=== PATIENT | male | born 1965 | race Caucasian/White ===

== ENCOUNTER → 2017-11-23 | Outpatient (CLI) | payer OTHER ==
[~2017-11-23] MED LIST: IOPAMIDOL 370 MG/ML 200 ML INFUS..BTL INJ ONE; SODIUM CHLORIDE 0.9% 250ML 250 ML ONE
[2017-11-23 16:04] LABS: BLOOD UREA NITROGEN 10 mg/dL (7-26); BUN/CREATININE RATIO 13 (6-25); CREATININE, SERUM 0.77 mg/dL (0.72-1.25); EST GLOMERULAR FILTRATION RATE > 60 ML/MIN (60-)
--- NOTE | 2017-11-23 18:48 | Diagnostic Imaging Report ---
PROCEDURE: CT ABDOMEN \T\ PELVIS W/WO CONTRAST TECHNIQUE: The abdomen and pelvis were scanned utilizing a multidetector helical scanner from the diaphragm to the lesser trochanter before and after the IV administration of 150 cc of Isovue 370 and the oral administration of water. CT urogram protocol was performed using split bolus technique. 3-D reconstructions were performed on a separate workstation. Coronal and sagittal multiplanar reformations were obtained. COMPARISON: None. INDICATIONS: HEMATURIA FINDINGS: LOWER THORAX: Normal. HEPATOBILIARY: Diffuse hepatic steatosis. No focal hepatic lesions. No biliary ductal dilatation. SPLEEN: No splenomegaly. PANCREAS: No focal masses or ductal dilatation. ADRENALS: No adrenal nodules. KIDNEYS/URETERS: No hydronephrosis, stones, or solid mass lesions. 1.1 cm hypodensity in the upper pole of the right kidney (series 7, image 54) is compatible with a simple cyst. Other tiny renal hypodensities are too small to characterize, but also likely represent cysts. No suspicious filling defects in the collecting systems. Opacified portions of the ureters are normal. There are short segments of non-opacified right ureter, likely due to peristalsis. PELVIC ORGANS/BLADDER: Unremarkable. PERITONEUM / RETROPERITONEUM: No free air or fluid. LYMPH NODES: No lymphadenopathy. VESSELS: Mild atherosclerotic calcifications of the aorta and its branches. GI TRACT: No distention or wall thickening. The appendix is not visualized, but there is no suspicious inflammation in the right lower quadrant. BONES AND SOFT TISSUES: Small sclerotic lesions in the right femoral head and pelvis likely represent benign bone islands. No aggressive osseous lesions. IMPRESSION: No specific findings to account for hematuria. No stones or solid renal masses. No suspicious filling defects in the collecting systems or ureters. Dictated by: Maikel Garcia M.D. on 11/23/2017 at 18:53 Electronically approved by: Maikel Garcia M.D. on 11/23/2017 at 18:53
== END ==
LOC: CT 15:16
PROVIDERS: ATTEND Urology
DX: R31.21 Asymptomatic microscopic hematuria (principal)
CPT/HCPCS: 36415; 74178; 82565; 84520; J7050; Q9967